=== PATIENT | female | born 1965 | race Caucasian/White ===

== ENCOUNTER 2019-04-09 17:43 | Emergency (ER) | payer OTHER ==
[~2019-04-09] VITALS: Ht 157.5 cm; Wt 62.1 kg
[2019-04-09 17:50] VITALS: BP_SYST 125
--- NOTE | 2019-04-09 17:50 | NUR ---
Patient triaged and placed in waiting room. VSS and patient appears in no acute distress at this time. Accompanied by SPOUSE, awaiting available bed, and MD notified of need for MSE.
--- NOTE | 2019-04-09 19:00 | NUR ---
Received report from JACIEL Carlos using SBAR format and pt care was endorsed.
--- NOTE | 2019-04-09 19:00 | NUR ---
Pt is a 53 y/o female w/ hx of kidney failure and kidney transplant, presenting into the ED for loose watery nonbloody diarrhea for 6 days and x4 episodes of n/v today. Reports not being able to keep down water or food. Denies SOB, dizziness, fever, cp. Will cont to monitor pt.
[2019-04-09 19:19] LABS: CALCIUM 9.2 mg/dL (8.4-11.0); CREATININE 0.83 mg/dL (0.55-1.30); POTASSIUM 4.9 mmol/L (3.5-5.1)
[2019-04-09 19:25] LABS: ALBUMIN 4.6 g/dL (3.4-4.8); TOTAL BILIRUBIN 0.6 mg/dL (0.0-1.0)
[2019-04-09] MEDS ORDERED: ONDANSETRON 4 MG ODT TAB PO ONE (19:30)
[2019-04-09 19:31] LABS: BASOPHILS % (AUTO) 0.5 % (0.0-2.0); EOSINOPHILS % (AUTO) 0.3 % (0.0-4.0); HEMATOCRIT 43.9 % (36-48); HEMOGLOBIN 15.1 g/dL (12.0-16.0); LYMPHOCYTES # (AUTO) 0.9 K/uL (1.0-5.5); LYMPHOCYTES % (AUTO) 10.4 % (20.5-51.5); MEAN CORPUSCULAR HEMOGLOBIN 31 pg (27-31); MEAN CORPUSCULAR HGB CONC 35 % (32-36); MEAN CORPUSCULAR VOLUME 91 fL (79.0-98.0); MONOCYTES # (AUTO) 0.5 K/uL (0.0-1.0); MONOCYTES % (AUTO) 5.6 % (1.7-9.3); NEUTROPHILS # (AUTO) 6.9 K/uL (1.8-7.7); NEUTROPHILS % (AUTO) 83.2 % (40.0-70.0); PLATELET COUNT (AUTO) 216 K/uL (130-430); RED BLOOD CELL COUNT(AUTO) 4.82 MIL/uL (4.2-6.2); RED CELL DISTRIBUTION WIDTH 12.9 % (9.0-15.0); WHITE BLOOD COUNT (AUTO) 8.3 K/uL (4.8-10.8)
--- NOTE | 2019-04-09 19:45 | NUR ---
Quin martini in ED - 04/09/19 at 2213 by [email or web address] JOSE MARIA White at bedside examining patient.
[2019-04-09] MEDS ORDERED: NACL 0.9% 1,000 ML IV ONE (20:15)
[2019-04-09] MEDS ORDERED: ONDANSETRON HCL 4 MG/2 ML VIAL IVP ONE (20:15)
--- NOTE | 2019-04-09 20:30 | NUR ---
ER Dr. Brito at bedside examining patient.
--- NOTE | 2019-04-09 22:00 | NUR ---
PO challenged pt, pt tolerated well. JOSE MARIA KNAPP made aware.
--- NOTE | 2019-04-09 22:17 | NUR ---
Patient given written and verbal discharge instructions and verbalizes understanding. ER MD discussed with patient the results and treatment provided. Patient in stable condition. ID arm band removed. IV catheter removed intact and dressing applied, no active bleeding. Rx of zofran given. Patient educated on pain management and to follow up with PMD. Pain Scale 0/10. Opportunity for questions provided and answered. Medication side effect fact sheet provided.
[2019-04-09 22:18] VITALS: BP_SYST 121
== END 2019-04-09 22:18 | disposition home or self-care (01) ==
LOC: SED 17:43
DX: R11.10 Vomiting, unspecified (principal); R19.7 Diarrhea, unspecified
CPT/HCPCS: 36415; 80053; 83690; 85025; 96361; 96374; 99283; J2405; J7030; Q0162